=== PATIENT | female | born 1980 | race Caucasian/White ===

== ENCOUNTER 2016-12-17 04:40 | Observation (INO) | payer BC ==
[2016-12-11 14:47] LABS: HEMATOCRIT 39.1 % (36.0-48.0); HEMOGLOBIN 13.9 g/dL (12.0-16.0)
--- NOTE | ~2016-12-17 | OP ---
Record Of Operation [facility] [address] [place]. [address] NAME: DANUTA MANCIA : 80 STATUS : [place] [facility] [place] [id number] AGE: 35 ADM/REG DATE : 12/17/16 MR#: [id number] REPORT SERV DATE: 12/17/16 DICTATED BY: JOSÉ MIGUEL GOODE DATE: 12/17/16 REPORT STATUS : Draft TRANSCRIBED BY: MODL DATE: 12/17/16 DATE OF PROCEDURE: PREOPERATIVE DIAGNOSES: 1. Large herniated nucleus polyposis, right C6-7. 2. Severe disk degeneration and spinal stenosis, C5-6. POSTOPERATIVE DIAGNOSES: 1. Large herniated nucleus polyposis, right C6-7. 2. Severe disk degeneration and spinal stenosis, C5-6. PROCEDURE: 1. Microscopic and navigation assisted surgery. 2. Anterior cervical diskectomy, foraminotomy, C5-6 and C6-7. 3. Anterior interbody fusion with cortical cancellous allograft, C4-5 and C5-6. 4. Anterior segmental spinal instrumentation with Venture plating, C5 to C7. SURGEON: José Miguel Goode D.O. COPY ROOM TECHNICIAN: Adebayo Das. ANESTHESIA: General. ESTIMATED BLOOD LOSS: 20 mL. INDICATIONS FOR SURGERY: A very pleasant 35-year-old female, who has had intractable neck pain, shoulder, and arm pain, worse on the right than the left, but has bilateral symptoms. The pain is associated with some cervicogenic headaches. She has been through time, medication, therapy, etc. Plain x-rays reveal disk degeneration and spondylosis, C5-6 and C6-7 was completely normal, but there is a loss of disk height at C5-6 and there is significant loss of lordosis on the plain x-ray particularly in a weightbearing, there was actually some reverse lordosis or slight kyphosis. MRI shows severe foraminal stenosis, left and right side at C5-6, but there was a large foraminal disk herniation at C6-7 causing marked nerve impingement. The patient is brought to surgery for the above procedure having failed conservative care. Prior to surgery, risks, benefits, alternatives, and expectations were explained. Consent form is signed. Also please note, today, the patient once again had all questions answered. I also explained the surgery to her and they have requested to proceed with surgery. Because of the complexity of surgery, and the need to identify correct level of surgery intraoperatively, as well as the desire to carry out the safest and most precise dissection, I feel intraoperative navigation is mandatory. DESCRIPTION OF PROCEDURE: Antibiotic prophylaxis was given. Neurophysiology monitoring leads were inserted. The patient was brought to the operative suite. General anesthetic Record Of [facility] [address] [place]. [address] NAME: DAUNTA MANCIA : 80 STATUS : REG [facility]#: [id number] AGE: 35 ADM/REG DATE : 12/17/16 MR#: [id number] REPORT SERV DATE: 12/17/16 DICTATED BY: JOSÉ MIGUEL GOODE DATE: 12/17/16 REPORT STATUS : Draft TRANSCRIBED BY: BENJIE DATE: 12/17/16 including endotracheal intubation was administered. Morris catheter was inserted was inserted. The patient was in a supine position on fluoroscopic frame, a small towel was placed behind the shoulders. The neck was in a minimally extended. The scalp was painted with Betadine solution. Dasilva three-point fixation was attached to the skull using 60 pounds torque in standard position. The Dasilva was attached to the Brennen bed. The Timeful navigational registration frame was attached to the Mccaulley. Isolation drapes were placed. The neck was scrubbed with Hibiclens solution. DuraPrep was painted. Sterile drapes were applied. Intraoperative CT scan with O-arm obtained, CT information used to register the navigational system. With navigational assistance, I identified the C5-6 and C6-7. At the mid body of C6, a transverse left-sided 2 cm Valente-Mccollum incision was carried out. The platysma was incised in line with the skin incision. The superficial layer of the deep cervical fascia was released along the anterior border of the sternocleidomastoid. Blunt dissection was carried out to the retropharyngeal space where the longus coli muscles were subperiosteally elevated. Retractors were placed. Intraoperative re-identification of the correct level of surgery was carried out with navigational assistance. The microscope was sterilely draped and used throughout the remainder of the procedure. With navigational assistance, I placed a Sabin distractor pin in the mid body of C6 and C7 initially. I incised the anterior longitudinal ligament, the anterior anulus, and a diskectomy was carried out with curettes and rongeurs. As I moved from anterior to posterior, I widened the interbody space allowing better visualization of the posterior aspect of the disk space. Complete diskectomy was carried out. A 3 mm ángela bur and a 2 mm ángela bur used to debride the uncinate processes and widely opened the foramen. The posterior longitudinal ligament was taken down with a 1 mm Kerrison rongeur and on the right side, we did find three large fragments of disk in the epidural space in the foraminal zone causing rather marked nerve impingement. Diskectomy was completed. The endplate curetted removing all endplate and cauterized the wound, the wound was irrigated. The width, depth, and height of the disk space was measured and a wedge-shaped cortical cancellous allograft was inserted. Traction was released locking the graft in good position. We then moved to C5-6 where we repeated the same identical steps, the only difference was there was no true disk extrusion, this was severe uncinate hypertrophy and foraminal stenosis, and this was all debrided with a 3 mm, followed by 2 mm, and 1 mm Kerrison rongeurs. The 3 and 2 mm burs referred to above are for the drill. The 1 mm Kerrison was the only Kerrison instrument used. The navigational assistance was used and we were able to ensure that we had debridement of the foramen as far lateral as possible. The wounds were irrigated. The width, depth, and height of the disk space was measured and again, a wedge- shaped cortical cancellous allograft was inserted. Traction was released locking the graft in good position. Finally, a six-hole Venture plate was placed over the anterior bodies of C5, C6, and C7. It was properly aligned in the midline with navigational assistance. The six-holes were drilled. The locking screws were inserted, providing rigid stability. Intraoperative AP Record Of Operation [address] [place]. [address] NAME: DANUTA MANCIA : 80 STATUS : REG [facility]#: [id number] AGE: 35 ADM/REG DATE : 12/17/16 MR#: [id number] REPORT SERV DATE: 12/17/16 DICTATED BY: JOSÉ MIGUEL GOODE DATE: 12/17/16 REPORT STATUS : Draft TRANSCRIBED BY: MODL DATE: 12/17/16 and lateral x-rays revealed excellent position of all implants. After final irrigation, the retractor was removed. No bleeding was noted. No drain was necessary. The platysma was closed with a running 3-0 Vicryl suture. The subcutaneous tissue was closed with 3-0 Vicryl suture, and subcuticular 4-0 PDS was used for skin closure. Sterile dressings were applied. The patient awakened, extubated, and taken to recovery room in satisfactory condition having tolerated procedure well. JESSICA/BENJIE José Miguel Goode D.O. / [id number] CC: José Miguel Goode D.O.
[~2016-12-17 04:40] MED LIST: ZANTAC 150 PO
[2016-12-18] MEDS ORDERED: METHOC500B PO (09:12)
[2016-12-18] MEDS ORDERED: DIL2TAB PO (09:12)
[2016-12-18] MEDS ORDERED: ULTRAM50 PO (09:12)
[2016-12-18] MEDS ORDERED: ZOFRAN4 PO (09:13)
== END 2016-12-18 13:10 | disposition home or self-care (01) ==
LOC: SDC 04:40 → 3SO 14:42
PROVIDERS: Orthopaedic Surgery Orthopaedic Surgery of the Spine
PROC: 0RG20J0 Fusion of 2 or more Cervical Vertebral Joints with Synthetic Substitute, Anterior Approach, Anterior Column, Open Approach (ICD-10-PCS; 2016-12-17)
PROC: 0RB30ZZ Excision of Cervical Vertebral Disc, Open Approach (ICD-10-PCS; 2016-12-17)
PROC: 0RG20K0 Fusion of 2 or more Cervical Vertebral Joints with Nonautologous Tissue Substitute, Anterior Approach, Anterior Column, Open Approach (ICD-10-PCS; principal; 2016-12-17 06:45)
DX: M48.02 Spinal stenosis, cervical region (principal); M50.322 Other cervical disc degeneration at C5-C6 level; M50.223 Other cervical disc displacement at C6-C7 level; K21.9 Gastro-esophageal reflux disease without esophagitis; K58.9 Irritable bowel syndrome, unspecified; K44.9 Diaphragmatic hernia without obstruction or gangrene; Z88.5 Allergy status to narcotic agent; Z90.49 Acquired absence of other specified parts of digestive tract; Z98.51 Tubal ligation status; Z90.89 Acquired absence of other organs; Z98.890 Other specified postprocedural states
CPT/HCPCS: 82962; 84703; 85014; 85018; 87641; 88304; 88311; 96374; 96375; 96376; A9270-GY; C1713; C1768; G0378; J0690; J1170; J2250; J2405; J3010